=== PATIENT | female | born 1980 | race Caucasian/White ===

== ENCOUNTER → 2017-03-06 | Outpatient (CLI) | payer BC ==
[2017-03-06 11:32] LABS: Basophils # (auto) 0 uL; Basophils % (auto) 0.6 % (0.0-2.0); CONDITION Y; Eosinophils # (auto) 0.5 uL; Eosinophils % (auto) 6.8 % (0.0-7.0); Hematocrit 42.2 % (36.0-46.0); Hemoglobin 14.6 g/dL (12.2-16.2); Lymphocytes % (auto) 28.5 % (10.0-50.0); Mean Corpuscular Hemoglobin 30.1 pg (28.0-32.0); Mean Corpuscular Hgb Conc. 34.5 g/dL (32.0-36.0); Mean Corpuscular Volume 87.2 fL (80.0-100.0); Mean Platelet Volume 9.1 fL (7.4-10.4); Monocytes # (auto) 0.5 uL; Monocytes % (auto) 7.9 % (0.0-12.0); Neutrophils # (auto) 3.9 uL; Neutrophils % (auto) 56.2 % (37.0-80.0); Platelet Count (auto) 237 10^3/uL (140-450); Red Cell Distribution Width 12.9 % (11.6-16.0); White Blood Cell 6.9 10^3/uL (4.4-10.8)
== END | disposition home or self-care (01) ==
LOC: LAB 11:05
PROVIDERS: ATTEND Specialist
DX: N92.6 Irregular menstruation, unspecified (principal)
CPT/HCPCS: 36415; 84443; 85025

== ENCOUNTER → 2017-03-31 | Outpatient (CLI) | payer BC | END | disposition home or self-care (01) | LOC: LAB 08:22 | PROVIDERS: ATTEND Obstetrics & Gynecology | DX: R87.612 Low grade squamous intraepithelial lesion on cytologic smear of cervix (LGSIL) (principal) ==

== ENCOUNTER 2020-04-16 08:58 | Emergency (ER) | payer BC ==
[~2020-04-16] VITALS: Ht 170.2 cm; Wt 85.3 kg
[2020-04-16 10:16] VITALS: BP 123/91
[2020-04-16] MEDS ORDERED: methylPREDNISolone SOD SUCC 125 MG/2 ML VL IM ONE (11:00)
== END 2020-04-16 11:24 | disposition home or self-care (01) ==
LOC: ER 08:58
DX: T63.481A Toxic effect of venom of other arthropod, accidental (unintentional), initial encounter (principal); Z88.6 Allergy status to analgesic agent; Z90.710 Acquired absence of both cervix and uterus; Y92.89 Other specified places as the place of occurrence of the external cause
CPT/HCPCS: 96372; 99283; J2930